=== PATIENT | female | born 1965 | race Caucasian/White ===

== ENCOUNTER → 2017-01-23 | Outpatient (CLI) | payer BC ==
[~2017-01-23] MED LIST: ENTYVIO; FOLIC ACID 11 MG/TA1 PO; SYNTHROID0.088 MG/T PO; TOPAMAX 100MG100 M1 PO; TREXALL5 MG PO; VAGIFEM10 MCG VG; VIVELLE-DO0.075 MG/2 TD
== END ==
LOC: MC.RAD 07:00
DX: Z12.31 Encounter for screening mammogram for malignant neoplasm of breast (principal)

== ENCOUNTER → 2017-02-02 | Outpatient (CLI) | payer BC | LOC: COL.RAD 13:10 | DX: M48.02 Spinal stenosis, cervical region (principal); M47.22 Other spondylosis with radiculopathy, cervical region ==

== ENCOUNTER 2017-03-12 13:05 | Outpatient (CLI) | payer OTHER ==
[~2017-03-12] VITALS: Ht 162.6 cm; Wt 71.6 kg
[2017-03-12 13:32] LABS: HEMATOCRIT 42.5 % (37.0-47.0); HEMOGLOBIN 14.1 g/dl (12.5-16.0); MEAN CELL VOLUME 95 fl (80.0-100.0); MEAN CORPUSCULAR HEMOGLOBIN 31 pg (27.0-31.0); MEAN CORPUSCULAR HGB CONC 33 g/dl (33.0-37.0); MEAN PLATELET VOLUME 10.2 fl (7.4-10.4); PLATELET COUNT 308 K/mm3 (130-400); RED BLOOD COUNT 4.49 M/mm3 (4.10-5.30); REDCELL DISTRIBUTION WIDTH-CV 12.4 % (11.5-14.5)
[2017-03-12 13:34] VITALS: BP 116/98; PULSE 85; TEMP 98
[2017-03-12 13:46] LABS: ALBUMIN 5.3 gm/dL (3.5-5.0); BILIRUBIN,TOTAL 0.9 mg/dL (0.0-1.0); CALCIUM 9.1 mg/dL (8.4-10.2); CREATININE, serum 0.9 mg/dL (0.52-1.25); POTASSIUM 3.8 mmol/L (3.4-5.0); TOTAL PROTEIN 8.4 gm/dL (6.4-8.2)
== END 2017-03-12 15:24 | disposition home or self-care (01) ==
LOC: EUO 13:05
PROVIDERS: Physician Assistant
DX: K51.90 Ulcerative colitis, unspecified, without complications (principal)
CPT/HCPCS: J3380; J7050

== ENCOUNTER 2017-05-17 14:12 | Outpatient (CLI) | payer OTHER ==
[~2017-05-17] VITALS: Ht 162.6 cm; Wt 72.0 kg
[2017-05-17] MEDS ORDERED: LEVOXYL0.112 MG PO (14:37)
[2017-05-17] MEDS ORDERED: ALDACTONE50 MG PO (14:40)
[2017-05-17] MEDS ORDERED: PROBIOTICA100 Milli1 PO (14:40)
[2017-05-17 14:41] LABS: HEMATOCRIT 41.9 % (37.0-47.0); HEMOGLOBIN 14.1 g/dl (12.5-16.0); MEAN CELL VOLUME 93 fl (80.0-100.0); MEAN CORPUSCULAR HEMOGLOBIN 31 pg (27.0-31.0); MEAN CORPUSCULAR HGB CONC 34 g/dl (33.0-37.0); PLATELET COUNT 331 K/mm3 (130-400); RED BLOOD COUNT 4.53 M/mm3 (4.10-5.30); REDCELL DISTRIBUTION WIDTH-CV 11.9 % (11.5-14.5)
[2017-05-17 14:56] LABS: ALBUMIN 4.2 gm/dL (3.5-5.0); BILIRUBIN,TOTAL 0.4 mg/dL (0.0-1.0); CALCIUM 9.3 mg/dL (8.4-10.2); CREATININE, serum 0.85 mg/dL (0.52-1.25)
[2017-05-17 15:21] VITALS: BP 110/47; PULSE 72; TEMP 98.3
== END 2017-05-17 15:59 | disposition home or self-care (01) ==
LOC: EUO 14:12
PROVIDERS: Physician Assistant
DX: K51.90 Ulcerative colitis, unspecified, without complications (principal)
CPT/HCPCS: J3380; J7050

== ENCOUNTER 2017-07-12 13:58 | Outpatient (CLI) | payer OTHER ==
[~2017-07-12] VITALS: Ht 162.6 cm; Wt 72.9 kg
[~2017-07-12 13:58] MED LIST changes: +ALDACTONE50 MG PO; +LEVOXYL0.112 MG PO; +PROBIOTICA100 Milli1 PO
[2017-07-12 14:25] VITALS: BP 113/61; PULSE 59; TEMP 98.4
[2017-07-12 14:25] LABS: HEMATOCRIT 42.3 % (37.0-47.0); HEMOGLOBIN 14.1 g/dl (12.5-16.0); MEAN CELL VOLUME 92 fl (80.0-100.0); MEAN CORPUSCULAR HEMOGLOBIN 31 pg (27.0-31.0); MEAN CORPUSCULAR HGB CONC 33 g/dl (33.0-37.0); MEAN PLATELET VOLUME 9.9 fl (7.4-10.4); PLATELET COUNT 344 K/mm3 (130-400); REDCELL DISTRIBUTION WIDTH-CV 11.9 % (11.5-14.5)
[2017-07-12] MEDS ORDERED: ANTIVERT 25MG25 MG PO (14:31)
[2017-07-12 14:42] LABS: ALBUMIN 4.2 gm/dL (3.5-5.0); BILIRUBIN,TOTAL 0.6 mg/dL (0.0-1.0); CALCIUM 9.2 mg/dL (8.4-10.2); CREATININE, serum 0.91 mg/dL (0.52-1.25); POTASSIUM 4.2 mmol/L (3.4-5.0); TOTAL PROTEIN 8.1 gm/dL (6.4-8.2)
== END 2017-07-12 16:15 | disposition home or self-care (01) ==
LOC: EUO 13:58
PROVIDERS: Physician Assistant
DX: K51.90 Ulcerative colitis, unspecified, without complications (principal); Z79.899 Other long term (current) drug therapy
CPT/HCPCS: J3380; J7050

== ENCOUNTER → 2017-07-20 | Outpatient (CLI) | payer OTHER ==
[~2017-07-20] MED LIST changes: +ANTIVERT 25MG25 MG PO
== END ==
LOC: COL.RAD 07-19 10:30
DX: G43.909 Migraine, unspecified, not intractable, without status migrainosus (principal); R42 Dizziness and giddiness
CPT/HCPCS: A9585

== ENCOUNTER → 2018-09-05 | Outpatient (CLI) | payer BC | LOC: MC.RAD 07-03 09:30 | DX: Z12.31 Encounter for screening mammogram for malignant neoplasm of breast (principal); Z98.82 Breast implant status ==